=== PATIENT | female | born 1960 | race Caucasian/White ===

== ENCOUNTER → 2016-09-01 | Outpatient (CLI) | payer BC ==
--- NOTE | 2016-09-02 08:38 | MM ---
Reason for exam: screening (asymptomatic). Last mammogram was performed 1 year and 6 months ago. History: Patient is postmenopausal and has history of other cancer at age 42. Benign US LT VAD breast biopsy of the left breast, July 20, 2011. Benign right breast aspiration of the right breast, July 20, 2011. Benign left breast aspiration of the left breast, July 20, 2011. Cyst aspiration of the right breast, 2008. Took hormonal contraceptives for 2 years. Taking estrogen for 5 years beginning at age 52. Physical Findings: A clinical breast exam by your physician is recommended on an annual basis and results should be correlated with mammographic findings. MG 3D Screening Mammo W/Cad Bilateral CC and MLO view(s) were taken. Prior study comparison: March 03, 2015, bilateral MG diagnostic mammo w CAD RISHABH. December 26, 2013, bilateral MG diagnostic mammo w CAD RISHABH. The breast tissue is heterogeneously dense. This may lower the sensitivity of mammography. There is no discrete abnormality. No significant changes when compared with prior studies. ASSESSMENT: Negative, BI-RAD 1 RECOMMENDATION: Routine screening mammogram of both breasts in 1 year.
== END | disposition home or self-care (01) ==
LOC: RADMAMWWP 11:29
PROVIDERS: ATTEND Family Medicine
DX: Z12.31 Encounter for screening mammogram for malignant neoplasm of breast (principal)
CPT/HCPCS: 77063; G0202

== ENCOUNTER → 2017-04-03 | Outpatient (CLI) | payer BC ==
[2017-04-03 14:11] LABS: Basophils # (A) 0.1 k/uL (0-0.2); Basophils % (A) 1 %; CH 31.3; CHCM 32.3; Eosinophils # (A) 0.1 k/uL (0-0.7); Eosinophils % (A) 1 %; HCT 40.1 % (34.0-46.0); HDW 2.34; HGB 13.2 gm/dL (11.4-16.0); Luc # (Auto) 0.13; Luc % (Auto) 2; Lymphocytes # (A) 1.9 k/uL (1.0-4.8); Lymphocytes % (A) 26 %; MCH 31.9 pg (25.0-35.0); MCHC 32.8 g/dL (31.0-37.0); MCV 97.4 fL (80.0-100.0); Mean Platelet Volume 6.7; Monocytes # (A) 0.4 k/uL (0-1.0); Monocytes % (A) 5 %; Neutrophils # (A) 4.7 k/uL (1.3-7.7); Neutrophils % (A) 65 %; RBC 4.12 m/uL (3.80-5.40); RDW 12.5 % (11.5-15.5); WBC 7.2 k/uL (3.8-10.6); WBC (Perox) 7.36
[2017-04-03 14:58] LABS: ALT 33 U/L (9-52); AST 27 U/L (14-36); Anion Gap 9 mmol/L; Blood Urea Nitrogen 20 mg/dL (7-17); C Reactive Protein <5.0 mg/L (<10.0); Calcium 9.4 mg/dL (8.4-10.2); Carbon Dioxide 31 mmol/L (22-30); Chloride 100 mmol/L (98-107); Creatine Kinase 70 U/L (30-135); Glucose 102 mg/dL (74-99); Non-African American GFR(MDRD) >60 (>60 ml/min/1.73 sqM); Potassium 3.8 mmol/L (3.5-5.1); Sodium 140 mmol/L (137-145); Uric Acid 2.8 mg/dL (3.7-7.4)
[2017-04-03 14:59] LABS: Rheumatoid Factor, Qnt <9 IU/mL (<12)
[2017-04-03 16:00] LABS: Erythrocyte Sedimentation Rate 7 mm/hr (0-20)
[2017-04-03 20:15] LABS: ANA w/Reflex to Titer NEGATIVE (NEGATIVE)
[2017-04-03 20:17] LABS: Cyclic Citrull Pep IgG Unit <0.5 U/mL; Cyclic Citrullinated Pep IgG NEGATIVE (NEGATIVE)
[2017-04-04 11:29] LABS: HLA B27 Comment SEEBELOW
[2017-04-06 07:42] LABS: Mis test requested (Blood) 14-3-3 eta Protein
== END | disposition home or self-care (01) ==
LOC: LABWHC1 12:41
PROVIDERS: ATTEND Orthopaedic Surgery
DX: M79.641 Pain in right hand (principal); M79.642 Pain in left hand; M79.89 Other specified soft tissue disorders
CPT/HCPCS: 36415; 80048; 82164; 82306; 82550; 83520; 84439; 84443; 84450; 84460; 84550; 85025; 85652; 86038; 86140; 86200; 86431; 86812

== ENCOUNTER → 2017-05-18 | Outpatient (CLI) | payer BC ==
--- NOTE | 2017-05-18 15:59 | BD ---
EXAMINATION TYPE: MG DEXA axial skeleton. DATE OF EXAM: 05/18/2017 COMPARISON: NONE CLINICAL HISTORY: PT IS A 56 YR OLD FEMALE....ICD10 CODE: M89.9 OSTEOPENIA Height: 62.5 Weight: 113 FRAX RISK QUESTIONS: Alcohol (3 or more units per day): NO Family History (Parent hip fracture): NO Glucocorticoids (More than 3mos): NO (Ex: prednisone, prednisolone, methylprednisolone, dexamethasone, and hydrocortisone). History of Fracture in Adulthood: NO Secondary Osteoporosis: NO 1. Type 1 Diabetes: NO 2. Hyperthyroidism: NO 3. Menopause before 45: NO 4. Malnutrition: NO 5. Chronic liver disease: NO Rheumatoid Arthritis: NO Current Tobacco Use: NO RISK FACTORS HISTORY OF: ANKLE CHILD Family History of Osteoporosis: YES, HER SISTER Active: NO Diet low in dairy products/other sources of calcium: NO Postmenopausal woman: HYST AT 51 YRS OLD Take estrogen and/or progesterone medications: ESTROGEN PATCH, SINCE AGE 52, VIVIVLE How lon YRS Hyperparathyroidism: NO Adrenal Insufficiency: NO MEDICATIONS: Prednisone or other steroids: ASTHMA INHALER PRN How Long: YRS Additional Medications: VIT D, XANAX, CYMBALTA, REFLUX MEDS, Additional History: LT LUNG REMOVED, POSSIBLE CA, NO CHEMO, NO RADIATION EXAM MEASUREMENTS: Bone mineral densitometry was performed using the [employer] System. Bone mineral density as measured about the Lumbar spine is: ----- L1-L4(G/cm2): 1.141 T Score Values are as follows: ----- L1: -1.2 ----- L2: -0.8 ----- L3: 0.3 ----- L4: 0.0 ----- L1-L4: -0.3 Bone mineral density THIS IS HER FIRST BONE DENSITY TEST.......BASELINE STUDY Bone mineral density about the R hip (g/cm2): 0.831 Bone mineral density about the L hip (g/cm2): 0.842 T Score values are as follows: -----R Neck: -1.9 -----L Neck: -2.1 -----R Total: -1.4 -----L Total: -1.3 Bone mineral density BASELINE STUDY FRAX%'S: THERE IS A 8.2% CHANCE OF A MAJOR OSTEOPOROTIC FX AND A 1.2% OF A HIP FX.....PROBABILITY OF FX IN 10 YRS TIME IMPRESSION: Osteopenia (T Score between -2.5 and -1) as noted by T score values with respect to both hips. There is slightly increased risk of fracture and the patient may be considered for treatment. Re-Screen 2-5 years. NOTE: T-SCORE=SD OF THE YOUNG ADULT MEAN.
== END | disposition home or self-care (01) ==
LOC: RADBDWWP 12:45
PROVIDERS: ATTEND Family Medicine
DX: M85.851 Other specified disorders of bone density and structure, right thigh (principal); M85.852 Other specified disorders of bone density and structure, left thigh
CPT/HCPCS: 77080

== ENCOUNTER → 2017-10-23 | Outpatient (CLI) | payer BC ==
--- NOTE | 2017-10-24 13:28 | MM ---
Reason for exam: screening (asymptomatic). Last mammogram was performed 1 year and 2 months ago. History: Patient is postmenopausal and has history of other cancer at age 42. Benign US LT VAD breast biopsy of the left breast, July 20, 2011. Benign right breast aspiration of the right breast, July 20, 2011. Benign left breast aspiration of the left breast, July 20, 2011. Cyst aspiration of the right breast, 2008. Took hormonal contraceptives for 2 years. Taking estrogen for 6 years beginning at age 52. Physical Findings: A clinical breast exam by your physician is recommended on an annual basis and results should be correlated with mammographic findings. MG 3D Screening Mammo W/Cad Bilateral CC and MLO view(s) were taken. Prior study comparison: September 01, 2016, bilateral MG 3d screening mammo w/cad. March 03, 2015, bilateral MG diagnostic mammo w CAD RISHABH. The breast tissue is extremely dense which could obscure a lesion on mammography. There is no discrete abnormality. ASSESSMENT: Negative, BI-RAD 1 RECOMMENDATION: Routine screening mammogram of both breasts in 1 year.
== END | disposition home or self-care (01) ==
LOC: RADMAMWWP 11:50
PROVIDERS: ATTEND Family Medicine
DX: Z12.31 Encounter for screening mammogram for malignant neoplasm of breast (principal)
CPT/HCPCS: 77063; 77067

== ENCOUNTER → 2018-03-08 | Outpatient (CLI) | payer BC ==
--- NOTE | 2018-03-08 14:46 | US ---
EXAMINATION TYPE: US venous doppler duplex LE LT DATE OF EXAM: 03/08/2018 12:47 PM COMPARISON: NONE CLINICAL HISTORY: M25.562 Pain in left knee. pain behind pop fossa on the left, no h/o dvt SIDE PERFORMED: Left TECHNIQUE: The lower extremity deep venous system is examined utilizing real time linear array sonog es with graded compression, doppler sonography and color-flow sonography. VESSELS IMAGED: External Iliac Vein (EIV) Common Femoral Vein Deep Femoral Vein Greater Saphenous Vein * Femoral Vein Popliteal Vein Small Saphenous Vein * Proximal Calf Veins (* superficial vessels) Left Leg: Appears negative for DVT2.6cm cystic area seen within left popiteal fossa may represent a Bakers cyst versus other etiology IMPRESSION: 1. Left lower extremity negative for deep venous thrombosis. 2. Small popliteal cyst left posterior fossa.
== END | disposition home or self-care (01) ==
LOC: RADUSWWP 12:12
PROVIDERS: ATTEND Family Medicine
DX: M71.22 Synovial cyst of popliteal space [Baker], left knee (principal)

== ENCOUNTER → 2018-05-08 | Outpatient (CLI) | payer BC | END | disposition home or self-care (01) | LOC: LABPAT 11:34 | PROVIDERS: ATTEND Family Medicine | DX: Z01.818 Encounter for other preprocedural examination (principal) | CPT/HCPCS: 93005 ==

== ENCOUNTER → 2018-10-24 | Outpatient (CLI) | payer BC ==
--- NOTE | 2018-10-25 10:46 | MM ---
Reason for exam: screening (asymptomatic). Last mammogram was performed 1 year ago. History: Patient is postmenopausal and has history of other cancer at age 42. Benign US LT VAD breast biopsy of the left breast, July 20, 2011. Benign right breast aspiration of the right breast, July 20, 2011. Benign left breast aspiration of the left breast, July 20, 2011. Cyst aspiration of the right breast, 2008. Took hormonal contraceptives for 2 years. Taking estrogen for 6 years beginning at age 52. Physical Findings: A clinical breast exam by your physician is recommended on an annual basis and results should be correlated with mammographic findings. MG 3D Screening Mammo W/Cad Bilateral CC and MLO view(s) were taken. Prior study comparison: October 23, 2017, bilateral MG 3d screening mammo w/cad. September 01, 2016, bilateral MG 3d screening mammo w/cad. The breast tissue is extremely dense which could obscure a lesion on mammography. No suspicious abnormality. No significant changes when compared with prior studies. ASSESSMENT: Negative, BI-RAD 1 RECOMMENDATION: Routine screening mammogram of both breasts in 1 year.
== END | disposition home or self-care (01) ==
LOC: RADMAMWWP 10:46
PROVIDERS: ATTEND Family Medicine
DX: Z12.31 Encounter for screening mammogram for malignant neoplasm of breast (principal)
CPT/HCPCS: 77063; 77067

== ENCOUNTER → 2019-09-06 | Outpatient (CLI) | payer BC ==
--- NOTE | 2019-09-06 14:52 | US ---
EXAMINATION TYPE: US venous doppler duplex LE LT DATE OF EXAM: 09/06/2019 2:41 PM COMPARISON: US 2018 CLINICAL HISTORY: M79.661 Pain in right lower leg. Left leg pain SIDE PERFORMED: Left TECHNIQUE: The lower extremity deep venous system is examined utilizing real time linear array sonog es with graded compression, doppler sonography and color-flow sonography. VESSELS IMAGED: External Iliac Vein (EIV) Common Femoral Vein Deep Femoral Vein Greater Saphenous Vein * Femoral Vein Popliteal Vein Small Saphenous Vein * Proximal Calf Veins (* superficial vessels) Grayscale, color doppler, spectral doppler imaging performed of the deep veins of the left lower extr emity. There is normal flow, compressibility, vascular waveforms. Left Leg: Appears negative for DVT IMPRESSION: No sonographic evidence of deep venous thrombosis within the left lower extremity.
== END | disposition home or self-care (01) ==
LOC: RADUSWWP 14:14
PROVIDERS: ATTEND Family Medicine
DX: M79.662 Pain in left lower leg (principal)

== ENCOUNTER 2020-06-18 10:02 | Day surgery (SDC) | payer BC ==
[2020-06-16 12:49] VITALS: BMI 20.9
[~2020-06-18 10:02] MED LIST: LACTATED RINGERS 1,000 ML IV SCH; LIDOCAINE 1% (10MG/ML) FOR IV START INTRADERMA PRN
[2020-06-18 10:30] VITALS: TEMP 97.8
[2020-06-18] MEDS ORDERED: LACTATED RINGERS 1,000 ML IV ONE (10:30)
[2020-06-18] MEDS ORDERED: PROPOFOL 10 MG/ML 20 ML VIAL IV ONE (11:05)
[2020-06-18] MEDS ORDERED: LIDOCAINE 1% INJ 10MG/ML (20 ML MDV) ONE (11:05)
--- NOTE | 2020-06-18 11:26 | P.PCN ---
Date of Procedure: 06/18/20 Procedure(s) Performed: BRIEF HISTORY: Patient is a 60-year-old pleasant at female scheduled for an elective colonoscopy as a part of evaluation of chronic diarrhea for the last 6 months duration. She has not was anywhere from 5-6 a day which are loose occasionally soft consistency. No blood or mucus in the stool. Last colonoscopy was 7 years ago. PROCEDURE PERFORMED: Colonoscopy random biopsy. PREOPERATIVE DIAGNOSIS: Chronic diarrhea of 6 months duration. IV sedation per Anesthesia. PROCEDURE: After informed consent was obtained, the patient, was brought into the endoscopy unit. IV sedation was administered by Anesthesia under continuous monitoring. Digital rectal examination was normal. Initially the Olympus CF-160 flexible video colonoscope was then inserted in the rectum, gradually advanced into the cecum without any difficulty. Careful examination was performed as the scope was gradually being withdrawn. Ileocecal valve and the appendiceal orifice were visualized and appeared normal. Prep was fair. There was some liquid stool with solid And along the flexures that could not be thoroughly irrigated.. Mucosa of the cecum, ascending colon, transverse colon, descending colon, sigmoid colon, and rectum appeared normal. Random biopsies were done from ascending and descending colon to rule out microscopic/collagenous colitis. Retroflexion was performed in the rectum and no lesions were seen. The patient tolerated the procedure well. IMPRESSION: Normal-appearing colon from rectum to cecum with no evidence of colorectal neoplasia . RECOMMENDATIONS: Findings of this examination were discussed with the patient as well her family.. She was advised to follow with the biopsy results. In the meantime she can use [id number] Imodium as needed for the chronic diarrhea. She can have a repeat screening colonoscopy in 10 years
[2020-06-18 11:29] VITALS: RESP 16
[2020-06-18 12:12] VITALS: BP 129/77; PULSE 77
== END 2020-06-18 12:17 | disposition home or self-care (01) ==
LOC: ORWHC2ENDO 10:02
PROVIDERS: ATTEND Internal Medicine Gastroenterology
DX: K52.9 Noninfective gastroenteritis and colitis, unspecified (principal); J45.909 Unspecified asthma, uncomplicated; G47.33 Obstructive sleep apnea (adult) (pediatric); K21.9 Gastro-esophageal reflux disease without esophagitis; M79.7 Fibromyalgia; Z79.899 Other long term (current) drug therapy; Z91.09 Other allergy status, other than to drugs and biological substances; Z85.118 Personal history of other malignant neoplasm of bronchus and lung
CPT/HCPCS: 88305; 45380; J2001; J2704

== ENCOUNTER → 2020-08-12 | Outpatient (CLI) | payer BC ==
--- NOTE | 2020-08-12 15:50 | CONS ---
CONSULTATION DATE OF SERVICE: 08/12/2020 The 60-year-old lady who has been evaluated in [facility] for significant excessive daytime sleepiness and possible obstructive sleep apnea-hypopnea syndrome. HISTORY OF PRESENT ILLNESS/SLEEP-WAKE EVALUATION: The patient had sleep study in another institution about 10 years ago. At that time, she was told about moderate obstructive sleep apnea and she was started on treatment with CPAP, but then for different reason treatment was stopped and she does not have any CPAP equipment at the present time. Her sleep schedule from 11 p.m. and 1 a.m. until 6 or 8 a.m. She does have problems with falling asleep, although no TV in bedroom. She usually sleeps on the side position. She has restless legs symptoms while falling asleep. During sleep, she snores and she wakes up from sleep 3 times with one episode of nocturia at night. When she wakes up, she feels that her mouth is dry. She has positive history of sleep talking, grinding teeth. No clear history of hypnagogic hallucinations, sleep paralysis or cataplexy. In the morning, patient wakes up tired has difficulties to pay attention, has problems with memory, concentration, irritability, depression and anxiety. [place] Sleepiness Scale is in very high range of 17 and this with treatment of Ritalin twice a day. PAST MEDICAL HISTORY: Positive for asthma, headaches, fibromyalgia, arthritis, acid reflux. PAST SURGICAL HISTORY: Lower lobe up of the left lung has been removed for the benign tumor, hysterectomy, left knee and left hand surgeries. MEDICATIONS: Cymbalta 60 mg twice a day, Zoloft 50 mg once a day, Xanax 0.5 mg once a day, Ritalin 30 mg twice a day, 00.5 twice a week, propranolol twice a day, topiramate once a day, Elavil once a day at bedtime, albuterol on p.r.n. basis. REVIEW OF SYSTEMS: Multiple awakenings from sleep, significant excessive daytime sleepiness. FAMILY HISTORY: Heart problems, liver problems, anemia, thyroid problems. PHYSICAL EXAMINATION: GENERAL: lady without distress. VITAL SIGNS: BP 131/70, HR 86, RR 12, height 5 feet 4 inches, weight 120.8, BMI 20.5, temperature 98.1, oxygen saturation at room air 98%. HEENT: PERRLA, EOMI. Oropharynx low position of soft palate. Mallampati 3. Small neck around 12 inches in circumference. NECK: Supple, no JVD. Thyroid is not palpable. LUNGS: Clear to percussion and to auscultation. Good air exchange. No wheezing or rhonchi. HEART: S1, S2 regular. No murmurs, gallops, or rubs. ABDOMEN: Soft and nontender. Bowel sounds are present. No organomegaly appreciated. EXTREMITIES: No clubbing or cyanosis. RADIATION ONCOLOGY THERAPIST: Awake, alert, and oriented X3. Cranial nerves 2 to 7 intact. There is no fasciculation or atrophy. noted. No focal deficits observed. IMPRESSION: 1. Snoring, history of obstructive sleep apnea in the past, multiple awakenings from sleep, low position of soft palate, possible obstructive sleep apnea-hypopnea syndrome. 2. Significant excessive daytime sleepiness with [place] Sleepiness Scale of 17 while patient is on treatment with Ritalin indicate possibility of hypersomnia and narcolepsy without cataplexy. 3. Difficulties to initiate sleep at night. 4. Restless leg symptoms. 5. Rule out periodic limb movements. 6. History of fibromyalgia. 7. History of mostly exercise-induced asthma. 8. History of arthritis. 9. Headaches. 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 11.Acid reflux. PLAN: 1. Home sleep apnea test for evaluation of patient breathing during the sleep to check for possible obstructive sleep apnea-hypopnea syndrome. 2. If home test will be negative, polysomnogram with following multiple sleep latency test for objective evaluation patient's symptoms of significant excessive daytime sleepiness for differential diagnosis with hypersomnia and narcolepsy. 3. Sleep hygiene with regular time in bed for 7-1/2 to 8 hours. 4. No driving if feeling sleepiness. 5. Please check iron profile including ferritin level. Low level of iron may increase the risk for restless legs syndrome. 6. We will check for periodic limb movements during polysomnogram. Thank you very much for referring this patient for consultation. Sincerely, Abner Fuentes MD, PhD, FAASM Diplomat of [employer] [employer] [place] [employer] Medical Record Clerk of [facility] [place] MMODL / IJN: [id number] /
== END | disposition home or self-care (01) ==
LOC: SLEEP 10:43
PROVIDERS: ATTEND Internal Medicine
DX: G47.10 Hypersomnia, unspecified (principal); G25.81 Restless legs syndrome; G47.69 Other sleep related movement disorders; R51.9 Headache, unspecified; K21.9 Gastro-esophageal reflux disease without esophagitis; Z98.890 Other specified postprocedural states; Z87.39 Personal history of other diseases of the musculoskeletal system and connective tissue; Z87.09 Personal history of other diseases of the respiratory system; Z79.899 Other long term (current) drug therapy; Z79.891 Long term (current) use of opiate analgesic; Z79.01 Long term (current) use of anticoagulants
CPT/HCPCS: 99211

== ENCOUNTER → 2020-08-17 | Outpatient (CLI) | payer BC ==
--- NOTE | 2020-08-17 17:07 | BD ---
EXAMINATION TYPE: Axial Bone Density DATE OF EXAM: 08/17/2020 COMPARISON: 05/18/2017 CLINICAL HISTORY: Postmenopausal screening Height: 5 FT 3 IN Weight: 119 FRAX RISK QUESTIONS: Alcohol (3 or more units per day): NO Family History (Parent hip fracture): NO Glucocorticoids (More than 3mos): NO (Ex: prednisone, prednisolone, methylprednisolone, dexamethasone, and hydrocortisone). History of Fracture in Adulthood: NO Secondary Osteoporosis: 1. Type 1 Diabetes: NO 2. Hyperthyroidism: NO 3. Menopause before 45: NO 4. Malnutrition: NO 5. Chronic liver disease: NO Rheumatoid Arthritis: YES Current Tobacco Use: NO RISK FACTORS HISTORY OF: Family History of Osteoporosis: YES Active: NO Diet low in dairy products/other sources of calcium: NO Postmenopausal woman: TOTAL HYST AGE 51 Take estrogen and/or progesterone medications: PATCH How long: STILL TAKING SINCE AGE 52 Lost more than 2 inches in height since high school: NO MEDICATIONS: Additional Medications: HRT PATCH, CYMBALTA, ZOLOFT, XANAX, RITALIN, Additional History: LUNG CANCER 2002 EXAM MEASUREMENTS: Bone mineral densitometry was performed using the [employer] System. Bone mineral density as measured about the Lumbar spine is: ----- L1-L4(G/cm2): 1.143 T Score Values are as follows: ----- L2: -0.7 ----- L3: 0.1 ----- L4: 0.1 ----- L1-L4: -0.3 Bone mineral density has: DECREASED -0.4 % since study of: 2016 Bone mineral density about the R hip (g/cm2): 0.712 Bone mineral density about the L hip (g/cm2): 0.694 T Score values are as follows: -----R Neck: -2.3 -----L Neck: -2.5 -----R Total: -1.6 -----L Total: -1.6 Bone mineral density has: DECREASED -3.5 % since study of: 2016 IMPRESSION: Osteoporosis (T Score less than -2.5). There is increased fracture risk and therapy is usually indicated based on age. Re-Screen 1-2 years. NOTE: T-SCORE=SD OF THE YOUNG ADULT MEAN.
--- NOTE | 2020-08-19 08:46 | MM ---
Reason for exam: screening (asymptomatic). Last mammogram was performed 1 year and 10 months ago. History: Patient is postmenopausal and has history of other cancer at age 42. Benign US LT VAD breast biopsy of the left breast, July 20, 2011. Benign right breast aspiration of the right breast, July 20, 2011. Benign left breast aspiration of the left breast, July 20, 2011. Cyst aspiration of the right breast, 2008. Took hormonal contraceptives for 2 years. Taking estrogen for 6 years beginning at age 52. Physical Findings: A clinical breast exam by your physician is recommended on an annual basis and results should be correlated with mammographic findings. MG 3D Screening Mammo W/Cad Bilateral CC and MLO view(s) were taken. Prior study comparison: October 24, 2018, bilateral MG 3d screening mammo w/cad. October 23, 2017, bilateral MG 3d screening mammo w/cad. The breast tissue is extremely dense which could obscure a lesion on mammography. Finding: There are grouped/clustered, fine calcifications in the upper outer quadrant, middle position of the left breast, 3.5cm from the nipple. New finding since October 24, 2018 and October 23, 2017. ASSESSMENT: Incomplete: need additional imaging evaluation, BI-RAD 0 RECOMMENDATION: Special view mammogram of the left breast. [facility] will attempt to contact patient to return for supplemental views.
== END | disposition home or self-care (01) ==
LOC: RADBDWWP 10:49
PROVIDERS: ATTEND Family Medicine
DX: Z12.31 Encounter for screening mammogram for malignant neoplasm of breast (principal); M81.0 Age-related osteoporosis without current pathological fracture
CPT/HCPCS: 77063; 77067; 77080

== ENCOUNTER → 2020-08-27 | Outpatient (CLI) | payer BC ==
--- NOTE | 2020-08-28 11:35 | MM ---
Reason for exam: additional evaluation requested from abnormal screening. Last mammogram was performed less than 1 month ago. History: Patient is postmenopausal and has history of other cancer at age 42. Benign US LT VAD breast biopsy of the left breast, July 20, 2011. Benign right breast aspiration of the right breast, July 20, 2011. Benign left breast aspiration of the left breast, July 20, 2011. Cyst aspiration of the right breast, 2008. Took hormonal contraceptives for 2 years. Taking estrogen for 6 years beginning at age 52. Physical Findings: Nurse did not find any significant physical abnormalities on exam. MG 3D Work Up W/Cad LT CC with magnification, LM with magnification, and LM view(s) were taken of the left breast. Prior study comparison: August 17, 2020, bilateral MG 3d screening mammo w/cad. October 24, 2018, bilateral MG 3d screening mammo w/cad. Faint group of calcifications outer central left breast. These results were verbally communicated with the patient and result sheet given to the patient on 08/27/20. ASSESSMENT: Suspicious, BI-RAD 4 RECOMMENDATION: Stereotactic core biopsy of the left breast. Called Dr. Shafer's office with mammographic findings and has scheduled an appointment for the patient for 09/21/20 at 11:[address] Chairez. Biopsy scheduled for 09/14/20 at 8:00. PRELIMINARY REPORT CALLED AND FAXED TO DR. CHAIREZ ON 08/28/20.
== END | disposition home or self-care (01) ==
LOC: RADMAMWWP 13:43
PROVIDERS: ATTEND Family Medicine
DX: R92.8 Other abnormal and inconclusive findings on diagnostic imaging of breast (principal)
CPT/HCPCS: 77061; 77065

== ENCOUNTER → 2020-09-14 | Day surgery (SDC) | payer BC ==
[2020-09-14 07:23] VITALS: RESP 16
[2020-09-14 08:44] VITALS: BP 120/71; PULSE 58; TEMP 98.3
--- NOTE | 2020-09-14 12:33 | MM ---
EXAMINATION TYPE: MG stereo VAD BX LT DATE OF EXAM: 09/14/2020 COMPARISON: 08/27/2020 and 08/17/2020 CLINICAL HISTORY: 60-year-old female referred for stereotactic core needle biopsy of the left breast, R92.8. TECHNIQUE: Stereotactic guided core biopsy of the left breast. FINDINGS: The procedure of stereotactic guided core biopsy was explained to the patient. Benefits, a lternatives, and risks were discussed. An informed consent was then obtained. The 3:00 left breast microcalcifications are very faint and targeted with difficulty. The [facility] pathway for biopsy was chosen. [facility] pathway was a lateral approach. I performed t he localization followed by the remainder of the procedure. A vacuum assisted biopsy gun was used to obtain 12 core samples. The patient tolerated the procedure well without any immediate complication. The patient was kept in the radiology department for short stay after the procedure and then discharged home in stable condi tion. A few targeted calcifications are identified in specimen mammogram. A registration representative area is felt to have been sampled. Post biopsy mammogram shows the clip (on CC and MLO views) to appear in satisfact ory position relative to the targeted area of concern on the preprocedure images. Unclear why the cl ip is not depicted on the standard lateral view. IMPRESSION: SUCCESSFUL, UNCOMPLICATED STEREOTACTIC GUIDED CORE BIOPSY OF A FIRMWARE ARCHITECT AREA OF VERY FAINT 3:00 LEFT BREAST MICROCALCIFICATIONS. FULL PATHOLOGY RESULTS TO FOLLOW.
== END ==
LOC: RADMAMWWP 07:11
PROVIDERS: ATTEND Student in an Organized Health Care Education/Training Program
DX: R92.8 Other abnormal and inconclusive findings on diagnostic imaging of breast (principal); R92.0 Mammographic microcalcification found on diagnostic imaging of breast; N60.32 Fibrosclerosis of left breast; N62 Hypertrophy of breast
CPT/HCPCS: 19081; A4648; J2001; 88305

== ENCOUNTER → 2020-09-28 | Outpatient (CLI) | payer BC ==
--- NOTE | 2020-09-29 09:26 | CT ---
EXAMINATION TYPE: CT chest wo/w con DATE OF EXAM: 09/28/2020 COMPARISON: 04/27/2012 HISTORY: chest pain, history of Lt lobectomy CT DLP: 270.2 mGycm, Automated exposure control for dose reduction was used. CONTRAST: Performed injected with 100 mL of Isovue 300. TECHNIQUE: Axial images were obtained at 5 mm thick sections. Reconstructed images are reviewed on [employer] computer in the coronal plane. FINDINGS: Portion of the thyroid visualized is normal. There is a prior left lobectomy. Mediastinum shifted to the left. Some very minimal left pleural flui d may be present. Couple small densities are at the right apex measuring 0.3 and 0.4 cm. These appear to be present pre viously. Some scarring is at the lateral right apex. Small nodular density on the right and 0.5 cm wa s present previously. No enlarged mediastinal or hilar adenopathy is evident. The ascending aorta diameter at the level o f the main pulmonary artery is 3.3 cm. The main pulmonary artery diameter at the bifurcation is 2.[address] sections are obtained through the upper abdomen. Abdomen is essentially unremarkable. IMPRESSIONS: 1. Stable left lobectomy changes. 2. Stable 1 findings at the right apex. 3. There may be some minimal left pleural fluid at the diaphragm
== END | disposition home or self-care (01) ==
LOC: RADCTMAIN 16:00
PROVIDERS: ATTEND Family Medicine
DX: R07.9 Chest pain, unspecified (principal)
CPT/HCPCS: 71270; Q9967

== ENCOUNTER → 2020-11-18 | Outpatient (CLI) | payer BC ==
--- NOTE | 2020-11-18 21:10 | SFUN ---
SLEEP CENTER FOLLOW UP NOTE DATE OF SERVICE: 11/18/2020 This 60-year-old lady has been followed in Sleep Center for treatment of obstructive sleep apnea-hypopnea syndrome. Recently the patient had a polysomnogram which showed that patient has moderate obstructive sleep apnea-hypopnea syndrome with apnea-hypopnea index actually close to the severe range. I discussed the results of her sleep studies with the patient in detail. She also has had CPAP titration, and during titration her respiration was fully controlled with a maximum pressure of 9 cm of water. Today is her first visit after patient was started on treatment with a CPAP. She sleeps better with the CPAP and she feels better during the day, less tired and less sleepy until 4 p.m., but after 4 p.m. she still continues to feel sleepiness. Summit Sleepiness Scale today is increased at 11. The patient's usual sleep schedule is from 10:30 or 11:30 p.m. until 6 a.m., when her wakes up, and she wakes up with him. Then she sleeps until 8 a.m. by herself. I checked her CPAP unit. Range of the pressure is 5 to 9, average pressure 8.8 cm of water, usage 23/30 nights for more than 4 hours, average usage 7.5 pounds per night, which is good compliance. Leak is 6 L/minute, which is normal. Apnea-hypopnea index increased to 10.5 for the last month. MEDICATIONS: Cymbalta, Zoloft, Xanax, Ritalin, propranolol, topiramate, Elavil, albuterol . PHYSICAL EXAMINATION: GENERAL: A pleasant patient in no distress. VITAL SIGNS: BP 150/75, HR 78, RR 12, oxygen saturation at room air 97%. Weight 120 pounds, temperature 97.8. HEENT: PERRLA, EOMI. Evaluation of oropharynx showed tongue protrudes midline. Low position of soft palate. Mallampati III. NECK: Supple. No JVD. Thyroid is not palpable. LUNGS: Clear to percussion and to auscultation. Good air exchange. No wheezing or rhonchi. HEART: S1, S2 regular. No murmurs, gallops or rubs. ABDOMEN: Soft and nontender. Bowel sounds are present. No organomegaly appreciated. EXTREMITIES: No clubbing or cyanosis. IRRIGATION TEACHER: Awake, alert, and oriented X3. Cranial nerves 2 to 7 intact. There is no fasciculation or atrophy. noted. No focal deficits observed. IMPRESSION: 1. Obstructive sleep apnea-hypopnea syndrome; apnea-hypopnea index 27.9 with oxygen desaturation to 82% by results of home sleep apnea test, which may underestimate severity of sleep apnea. Respiration improved on CPAP. Patient demonstrated great compliance with treatment, benefitting from treatment, but apnea-hypopnea index is still above normal at 10.5 per hour. 2. History of significant sleepiness with Summit Sleepiness Scale of 17. Summit Sleepiness Scale decreased to 11 now along with treatment with CPAP, but the patient still continues to feel sleepiness in the afternoon. 3. History of difficulty initiating sleep at night. 4. History of fibromyalgia. 5. History of exercise-induced asthma. 6. History of arthritis. 7. Headaches. 8. 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 9. Acid reflux. PLAN: 1. I changed regimen in CPAP unit to the maximal level of 12 cm of water, minimum of 5 cm of water. 2. Patient will continue to use PAP equipment every night for the whole night. 3. Sleep hygiene with regular time in bed for at least 7-1/2 to 8 hours. 4. Precautions related to driving. No driving if feeling sleepiness. 5. I will maintain all necessary prescription for PAP supplies including mask, tube, filters. 6. Watching weight. 7. Follow-up visit in 2 months or earlier if patient has any problems. I spent more than 30 minutes with the patient and chart. Thank you very much for allowing me to participate in the management of your patient. Sincerely, Abner Fuentes MD, PhD, FAASM Diplomat of [employer] Warehouse Shipping Clerk of [facility] [place] MMODL / IJN: [id number] /

== ENCOUNTER → 2021-01-20 | Outpatient (CLI) | payer BC ==
--- NOTE | 2021-01-20 20:53 | SFUN ---
SLEEP CENTER FOLLOW UP NOTE DATE OF SERVICE: 01/20/2021 60-year-old lady has been followed in Sleep Center for treatment of obstructive sleep apnea-hypopnea syndrome. The patient is on treatment with CPAP and use equipment most of the night. Sometimes feels that the pressure is too high for show her when she wakes up in the morning. Kamuela Sleepiness Scale today increased to 14. I checked the patient's CPAP unit. Range of the pressure 5-12, average pressure 9.9, usage 20/30 nights for more than 4 hours. Average 7.3 hours per night, leak is 7 L/minute which is acceptable. Apnea-hypopnea index still increased to 10.6 with apnea index 9.7 and that happened after increased pressure during the previous visit. MEDICATIONS: Cymbalta 10 mg twice a day, Zoloft, Xanax 0.5 mg once a day, Ritalin 30 mg once a day, Elavil, albuterol as needed. PHYSICAL EXAMINATION: GENERAL: Patient in no distress. BP 144/83, HR 80, RR 15, height 5 and 3, weight 121, body mass index 21.6, temperature 98.2, oxygen saturation at room air 97%. Oropharynx low position of soft palate, Mallampati 3. NECK: Supple, no JVD. Thyroid is not palpable. LUNGS: Clear to percussion and to auscultation. Good air exchange. No wheezing or rhonchi. HEART: S1, S2 regular. No murmurs, gallops, or rubs. ABDOMEN: Soft and nontender. Bowel sounds are present. No organomegaly appreciated. EXTREMITIES: No clubbing or cyanosis. MILK PICKUP DRIVER: Awake, alert, and oriented X3. Cranial nerves 2 to 7 intact. There is no fasciculation or atrophy. noted. No focal deficits observed. IMPRESSION: 1. Obstructive sleep apnea-hypopnea syndrome. Patient demonstrated good compliance with treatment, benefitting from treatment. Original Apnea-hypopnea index 27.9 and decreased to 10.6 now, but still above normal range. 2. Previously significant excessive daytime sleepiness, now the [place]uela Sleepiness Scale was 17. Today it is better than during the first visit down to 14, but still again about normal range indicate some sleepiness. 3. History of fibromyalgia. 4. History of exercise-induced asthma. 5. History of arthritis. 6. Headaches. 7. Status post left lung lower lobectomy for benign tumor. 8. Acid reflux. PLAN: 1. I reviewed the results of the sleep study. Patient respiration was mostly on control with a low pressure. I decreased level of pressure in the machine to 5-10 regimen. 2. Patient will continue to use PAP equipment every night for the whole night. 3. Sleep hygiene with regular time in bed for at least 7-1/2 to 8 hours. 4. Precautions related to driving. No driving if feeling sleepiness. 5. I will maintain all necessary prescription for PAP supplies including mask, tube, filters. 6. Follow-up visit in 6 months or earlier if patient has any problems. Thank you very much for allowing me to participate in management of your patient. Sincerely, Abner Fuentes MD, PhD, FAASM Diplomat of [place] [employer] Sleep Medicine Board of [place] [employer] Skilled Trades Teacher of [facility] [place] JOAN / NEIL: [phone] / [email or web address]
== END ==
LOC: SLEEP 11:09
PROVIDERS: ATTEND Internal Medicine

== ENCOUNTER 2021-01-24 10:49 | Emergency (ER) | payer BC, MEDICARE ==
--- NOTE | 2021-01-24 11:29 | ED ---
Extremity Problem HPI - General Chief complaint: Extremity Problem,Nontraumatic Stated complaint: rt leg injury Time Seen by Provider: 01/24/21 10:59 Source: patient Mode of arrival: wheelchair Limitations: no limitations - History of Present Illness Initial comments: Patient is a 60-year-old female presenting to emergency Department with complaints of right upper leg pain that started yesterday. Patient states over the past week she's been feeling a little bit of discomfort in her right upper leg but no injuries or falls. No previous hip or knee surgeries. She states this morning she states the pain increased so bad that she was unable to bear weight and had a hard time walking around. She denies any swelling to the area, no redness, no fevers or chills. She's had no history of DVTs. She is not on a blood thinner. No recent travel. She has no further complaints at this time. - Related Data Home Medications Medication Instructions Recorded Confirmed ALPRAZolam [Xanax] 0.5 mg PO DAILY 06/16/20 09/14/20 DULoxetine HCL [Cymbalta] 30 mg PO BID 06/16/20 09/14/20 Methylphenidate HCl [Ritalin LA] 30 mg PO BID 06/16/20 09/14/20 Sertraline [Zoloft] 25 mg PO DAILY 06/16/20 09/14/20 Estradiol [Vivelle-Dot 0.075 MG] 1 patch TRANSDERM Q84H 09/02/20 09/14/20 Allergies Allergy/AdvReac Type Severity Reaction Status Date / Time adhesive AdvReac skin Verified 09/14/20 07:17 blisters Review of Systems ROS Statement: Those systems with pertinent positive or pertinent negative responses have been documented in the HPI. ROS Other: All systems not noted in ROS Statement are negative. Past Medical History Past Medical History: Asthma, Cancer, Fibromyalgia, Osteoarthritis (OA), Sleep Apnea/CPAP/BIPAP Additional Past Medical History / Comment(s): ?lung cancer 2002, stated couldn't decide if cancerous or not, tumor removed-no other tx., doesn't use CPAP, change in bowel habits History of Any Multi-Drug Resistant Organisms: None Reported Past Surgical History: Hysterectomy, Orthopedic Surgery Additional Past Surgical History / Comment(s): left partial lobectomy, arthroscopies left knee, lump removed left hand Past Anesthesia/Blood Transfusion Reactions: Postoperative Nausea & Vomiting (PONV) Past Psychological History: Anxiety, Depression Smoking Status: Never smoker Past Alcohol Use History: None Reported Past Drug Use History: None Reported General Exam - General Exam Comments Initial Comments: GENERAL: Patient is well-developed and well-nourished. Patient is nontoxic and in no acute distress. HEAD: Atraumatic, normocephalic. EYES: Pupils equal round and reactive to light, extraocular movements intact, sclera anicteric, conjunctiva are normal. Eyelids were unremarkable. LUNGS: Unlabored respirations. Breath sounds clear to auscultation bilaterally and equal. No wheezes rales or rhonchi. HEART: Regular rate and rhythm without murmurs, rubs or gallops. ABDOMEN: Soft, nontender, normoactive bowel sounds. MUSCULOSKELETAL: Mild pain with palpation of the right anterior upper leg, lateral aspect as well. She has full right hip range of motion, mild pain at the end ranges. She is neurovascular intact. There is no swelling, no erythema. No deformity noted. No clubbing or cyanosis. NEUROLOGICAL: Patient is alert and oriented x 3. Normal speech, normal gait. PSYCH: Normal mood, normal affect. SKIN: Warm, Dry, normal turgor, no rashes or lesions noted. Limitations: no limitations Course Vital Signs 01/24/21 01/24/21 10:54 13:00 Temperature 98.7 F Pulse Rate 80 66 Respiratory 16 18 Rate Blood Pressure 143/57 113/84 O2 Sat by Pulse 99 99 Oximetry - Reevaluation(s) Reevaluation #1: 01/24/21 14:31 X-rays of the right femur showed no acute process. I waiting for right lower leg ultrasound to be read, it's been close to 2 hours since ultrasound has been performed. We did call radiologist who states they are trying to keep up and her busy at this time. Patient was updated on the plan. Continue to await ultrasound results. Medical Decision Making - Medical Decision Making Patient is a 60-year-old female here with right anterior and lateral upper leg pain increasing over the past couple days. No falls or injury, no previous surgeries. No obvious deformity, no redness, no swelling on exam. X-rays are negative of the right femur, ultrasound is negative for acute DVT of the right leg. I discussed the patient is supposed likely muscle skeletal in nature. Recommended Tylenol or Motrin for discomfort, heat and/or ice to the area. If symptoms persist she can follow up with her orthopedic doctor. She is agreeable to this plan of care. Case discussed with Dr. Stubbs. Disposition Clinical Impression: Right thigh pain Disposition: HOME SELF-CARE Condition: Stable Instructions (If sedation given, give patient instructions): Musculoskeletal Pain (ED) Additional Instructions: Please return to the Emergency Department if symptoms worsen or any other concerns. Recommended Tylenol or Motrin for discomfort, heat and/or ice to the area. If symptoms persist, follow up with her orthopedic physician or primary care doctor. Is patient prescribed a controlled substance at d/c from ED?: No Referrals: Genevieve Galvan MD [Primary Care Provider] - 1-2 days Time of Disposition: 14:49
--- NOTE | 2021-01-24 12:56 | XR ---
EXAMINATION TYPE: XR femur RT DATE OF EXAM: 01/24/2021 COMPARISON: NONE HISTORY: 60 years Female. STUDY INDICATION GIVEN: Pain TECHNIQUE: AP portable chest radiograph FINDINGS AND IMPRESSION: Intact femur with no acute fracture or dislocation. Mild soft tissue swelling over the lateral proximal thigh. Right sacroiliac joint, pubic symphysis and right knee joint are unremarkable. Minimal subchondral cystic changes seen of the right hip joint.
--- NOTE | 2021-01-24 14:45 | US ---
EXAMINATION TYPE: US venous doppler duplex LE RT DATE OF EXAM: 01/24/2021 12:58 PM COMPARISON: NONE CLINICAL HISTORY: pain, no injury. Pt states right leg pain SIDE PERFORMED: Right TECHNIQUE: The lower extremity deep venous system is examined utilizing real time linear array sonog es with graded compression, doppler sonography and color-flow sonography. VESSELS IMAGED: Common Femoral Vein Deep Femoral Vein Greater Saphenous Vein * Femoral Vein Popliteal Vein Small Saphenous Vein * Proximal Calf Veins (* superficial vessels) Right Leg: Negative for DVT IMPRESSION: No evidence of deep vein thrombosis in the right leg.
[2021-01-24 15:02] VITALS: BP 129/71; PULSE 74; RESP 20; TEMP 98
== END 2021-01-24 15:02 | disposition home or self-care (01) ==
LOC: EC 10:49
DX: M79.651 Pain in right thigh (principal); J45.909 Unspecified asthma, uncomplicated; M79.7 Fibromyalgia; M19.90 Unspecified osteoarthritis, unspecified site; G47.33 Obstructive sleep apnea (adult) (pediatric); Z99.81 Dependence on supplemental oxygen; Z85.118 Personal history of other malignant neoplasm of bronchus and lung; F32.9 Major depressive disorder, single episode, unspecified; F41.9 Anxiety disorder, unspecified
CPT/HCPCS: 99284

== ENCOUNTER → 2021-09-25 | Outpatient (CLI) | payer BC ==
--- NOTE | 2021-09-25 18:45 | MR ---
EXAMINATION TYPE: MR brain wo/w con DATE OF EXAM: 09/25/2021 COMPARISON: None HISTORY: Dizziness, memory loss. Hx lung cancer 2002. CONTRAST: Standard multiplanar, multisequence MRI departmental protocol images were obtained without contrast a nd with 5.5 mL intravenous Gadavist gadolinium contrast. Ventricles have normal size. There is no mass effect or midline shift. There is no sign of intracrani al hemorrhage. Diffusion images show no sign of an acute infarct. There is a 3 mm focus of increased signal on the T2 and FLAIR images left posterior frontal lobe white matter. Brainstem is intact. Ther e is no evidence of posterior fossa mass. Corpus callosum is intact. Sella turcica appears normal. Th ere is no evidence of orbital mass. Contrast images show normal enhancement of the venous sinuses. There is no pathologic enhancement. IMPRESSION: Single white matter high signal focus left frontal lobe of doubtful significance. Otherwise negative exam. No evidence of metastatic disease. No evidence of cortical infarct. No posterior fossa mass.
== END | disposition home or self-care (01) ==
LOC: RADMRIMAIN 12:34
PROVIDERS: ATTEND Family Medicine
DX: R42 Dizziness and giddiness (principal); R41.3 Other amnesia; Z85.118 Personal history of other malignant neoplasm of bronchus and lung
CPT/HCPCS: 70553; A9585

== ENCOUNTER → 2021-11-12 | Outpatient (CLI) | payer BC ==
--- NOTE | 2021-11-12 15:09 | MM ---
Reason for exam: additional evaluation requested from prior study. Last mammogram was performed 1 year and 3 months ago. History: Patient is postmenopausal and has history of other cancer at age 42. Benign MG stereo VAD BX LT of the left breast, September 14, 2020. Benign US LT VAD breast biopsy of the left breast, July 20, 2011. Benign right breast aspiration of the right breast, July 20, 2011. Benign left breast aspiration of the left breast, July 20, 2011. Cyst aspiration of the right breast, 2008. Took hormonal contraceptives for 2 years. Taking estrogen for 6 years beginning at age 52. Physical Findings: A clinical breast exam by your physician is recommended on an annual basis and results should be correlated with mammographic findings. MG 3D Diag Mammo W/Cad RISHABH Bilateral CC and MLO view(s) were taken. Prior study comparison: August 27, 2020, left breast MG 3d work up w/cad LT. August 17, 2020, bilateral MG 3d screening mammo w/cad. The breast tissue is heterogeneously dense. This may lower the sensitivity of mammography. Few scattered calcifications. Previous mammotome biopsy in the left breast. There is chronic nodularity bilaterally. Results were given to the patient verbally at the time of the exam. ASSESSMENT: Incomplete: need additional imaging evaluation, BI-RAD 0 RECOMMENDATION: Ultrasound of both breasts. Manage patient on a clinical basis.
--- NOTE | 2021-11-12 15:12 | USB ---
Reason for exam: additional evaluation requested from abnormal screening. History: Patient is postmenopausal and has history of other cancer at age 42. Benign MG stereo VAD BX LT of the left breast, September 14, 2020. Benign US LT VAD breast biopsy of the left breast, July 20, 2011. Benign right breast aspiration of the right breast, July 20, 2011. Benign left breast aspiration of the left breast, July 20, 2011. Cyst aspiration of the right breast, 2008. Took hormonal contraceptives for 2 years. Taking estrogen for 6 years beginning at age 52. Physical Findings: A clinical breast exam by your physician is recommended on an annual basis and results should be correlated with mammographic findings. US Breast BILAT Left complete breast ultrasound includes all four quadrants, the retroareolar region and axilla. Finding demonstrates a 0.6 x 0.4 x 0.6cm lesion at 5 o'clock. Right complete breast ultrasound includes all four quadrants, the retroareolar region and axilla. Finding demonstrates no cystic or solid lesion seen. Results were given to the patient verbally at the time of the exam. ASSESSMENT: Benign, BI-RAD 2 RECOMMENDATION: Routine screening mammogram of both breasts in 1 year. Manage patient on a clinical basis.
== END | disposition home or self-care (01) ==
LOC: RADMAMWWP 13:57
PROVIDERS: ATTEND Family Medicine
DX: R92.1 Mammographic calcification found on diagnostic imaging of breast (principal); N64.89 Other specified disorders of breast; Z78.0 Asymptomatic menopausal state
CPT/HCPCS: 77062; 77066

== ENCOUNTER → 2022-03-30 | Outpatient (CLI) | payer BC ==
[2022-03-30 18:08] LABS: HDL Cholesterol 77.4 mg/dL (40.00-60.00); Triglycerides 43.4 mg/dL (0.00-149.00)
[2022-03-30 18:21] LABS: Chol/HDL Ratio 1.86 Ratio; LDL Cholesterol,Direct Reflex 61.9 mg/dL (0.00-129.00)
== END | disposition home or self-care (01) ==
LOC: LABWHC1 10:34
PROVIDERS: ATTEND Family Medicine
DX: E78.5 Hyperlipidemia, unspecified (principal); M25.50 Pain in unspecified joint; R74.01 Elevation of levels of liver transaminase levels
CPT/HCPCS: 36415; 80061; 82550; 83721; 84450; 84460

== ENCOUNTER → 2022-07-04 | Outpatient (CLI) | payer MEDICARE ==
[2022-07-04 17:46] LABS: Basophils # (A) 0.06 X 10*3/uL (0.00-0.10); Basophils % (A) 0.8 %; Eosinophils # (A) 0.16 X 10*3/uL (0.04-0.35); Eosinophils % (A) 2.2 %; HCT 46.2 % (37.2-46.3); HGB 15.2 g/dL (12.0-15.0); Immature Grans, Automated 0.1 %; Lymphocytes # (A) 2.34 X 10*3/uL (0.90-5.00); Lymphocytes % (A) 32.5 %; MCH 31.1 pg (27.0-32.0); MCHC 32.9 g/dL (32.0-37.0); MCV 94.7 fL (80.0-97.0); Mean Platelet Volume 9.7 fL (9.5-12.2); Monocytes # (A) 0.43 X 10*3/uL (0.20-1.00); NRBC Per 100 WBC 0 /100 WBCS (0.0-0.0); Neutrophils # (A) 4.19 X 10*3/uL (1.80-7.70); Neutrophils % (A) 58.4 %; Platelet Count 299 X 10*3/uL (140-440); RBC 4.88 X 10*6/uL (4.10-5.20); WBC 7.19 X 10*3/uL (4.50-10.00)
[2022-07-04 18:08] LABS: Albumin 4.6 g/dL (3.8-4.9); Anion Gap 8.6 mmol/L (10.00-18.00); BUN/Creat Ratio 21.22 Ratio (12.00-20.00); Blood Urea Nitrogen 20.6 mg/dL (9.0-27.0); Calcium 9.3 mg/dL (8.7-10.3); Carbon Dioxide 28.8 mmol/L (20.0-27.5); Globulin 2.3 g/dL (1.6-3.3); Non-African American GFR(CKD) 62.1 (60.0-200.0); Potassium 4.3 mmol/L (3.5-5.5); Total Bilirubin 0.4 mg/dL (0.30-1.20); Total Protein 6.9 g/dL (6.2-8.2)
== END | disposition home or self-care (01) ==
LOC: LABWHC1 11:54
PROVIDERS: ATTEND Family Medicine
DX: R89.1 Abnormal level of hormones in specimens from other organs, systems and tissues (principal); R53.83 Other fatigue
CPT/HCPCS: 36415; 80053; 82465; 85025

== ENCOUNTER → 2024-06-25 | Outpatient (CLI) | payer MEDICARE ==
--- NOTE | 2024-06-25 11:02 | MR ---
EXAMINATION TYPE: MR brain wo/w con DATE OF EXAM: 06/25/2024 10:28 AM COMPARISON: 09/05/2009 CLINICAL INDICATION: Female, 64 years old with history of R20.2 Numbness and tingling left side, Wyatt ry loss, weakness/numbness left side. IV Contrast: 5 cc Gadobutrol (None if empty) TECHNIQUE: Multiplanar, multisequence images of the brain and brainstem is performed without and with IV contras t, utilizing 5 mL intravenous Gadobutrol . FINDINGS: Diffusion weighted images demonstrate no evidence of a recent infarct or other diffusion ab normality. Mild generalized degenerative change. Tiny punctate scattered areas of abnormal signal in the white m atter are too small to characterize but likely in the basis of benign etiologies. Remote microvascula r ischemia or hypertension in the differential diagnosis. Faint abnormal signal involving the blane ma y be on the basis of remote ischemia. Small area of hypodensity involving the left temporal lobe may be related to intraparenchymal cyst or small area of remote ischemia. Stable from prior exam. Midline structures demonstrate normal morphology. The craniocervical junction appears within normal limits. Post contrast images demonstrate no abnormal enhancement. The dural venous sinuses appear pa tent. The mild changes of chronic sinusitis. And the globes are intact. Minimal changes of mastoiditi s. IMPRESSION: 1. No acute process. 2. Mild sinusitis and chronic mastoiditis. 3. There are couple tiny punctate areas of scattered nonspecific white matter abnormal signal too sma ll to characterize. Findings are stable. [facility], , 06/25/2024 11:00 AM
== END | disposition home or self-care (01) ==
LOC: RADMRIMAIN 09:46
PROVIDERS: ATTEND Family Medicine
DX: J32.9 Chronic sinusitis, unspecified (principal); H70.10 Chronic mastoiditis, unspecified ear; R20.2 Paresthesia of skin
CPT/HCPCS: 70553; A9585

== ENCOUNTER → 2024-08-29 | Outpatient (CLI) | payer MEDICARE ==
--- NOTE | 2024-08-30 06:09 | MR ---
MRI CERVICAL SPINE: CLINICAL HISTORY: Cervical radiculopathy. History of lung cancer. Headaches with pain down both arms. TECHNIQUE: Multiplanar, multisequence imaging of the cervical spine is performed without and with IV contrast, 5 cc of gadolinium was given intravenously. COMPARISON: None. FINDINGS: There is slight dextroconvex scoliotic curvature centered in the upper thoracic spine. Sagi ttal images of the cervical spine show the craniocervical junction to appear within normal limits. T he cervical and upper thoracic spinal cord is normal in course, caliber, and signal. There is slight grade 1 retrolisthesis C3 on C4 and C4 on C5. The vertebral body heights are normal. There is modera te disc space narrowing at C3-C4, C4-C5, and C6-C7 levels. The bone marrow signal intensity is within normal limits. No suspicious postcontrast enhancement is seen. Axial images show C2-C3 level to appear within normal limits. Axial images at C3-4 level shows spondylosis with broad-based posterior disc protrusion effacing the anterior thecal sac and causing moderate bilateral neural foraminal narrowing. Axial images at C4-C5 level shows spondylosis with broad-based posterior disc protrusion effaces the anterior thecal sac and causing moderate to advanced left greater than right bilateral neural foramin al narrowing. Axial images at the C5-C6 level show more central broad-based disc protrusion effacing the anterior t hecal sac with mild bilateral neural foraminal narrowing. Axial images at C6-C7 level show more prominent lobulated central disc protrusion effacing anterior t hecal sac nearly up to the ventral surface of spinal cord. Bilateral neural foramina are patent. Axial images at C7-T1 level show mild broad disc bulge minimally effacing the anterior thecal sac and causing mild right greater than left bilateral neural foraminal narrowing. Irregular opacity in the medial left upper lung coronal image 7 favor scar tissue but should be corre lated clinically. IMPRESSION: Multilevel degenerative changes in the cervical spine as detailed above. [facility], , 08/30/2024 6:07 AM
== END | disposition home or self-care (01) ==
LOC: RADMRIMAIN 10:46
PROVIDERS: ATTEND Family Medicine
DX: M47.22 Other spondylosis with radiculopathy, cervical region (principal); M50.11 Cervical disc disorder with radiculopathy, high cervical region; M99.71 Connective tissue and disc stenosis of intervertebral foramina of cervical region
CPT/HCPCS: 72156; A9585